=== PATIENT | female | born 1955 | race African-American/Black ===

== ENCOUNTER → 2021-10-28 11:06 | Outpatient (CLI) | payer OTHER, SELFPAY ==
--- NOTE | ~2021-10-28 | MM_ITS ---
EXAMINATION: MM screening meenakshi BI w geraldo HISTORY: Screening mammogram TECHNIQUE: Craniocaudal and mediolateral oblique 3-D tomosynthesis images were obtained and synthetic 2-D images were generated. CAD analysis was submitted and interpreted. COMPARISON: 06/04/2018, 07/17/2016 bilateral screening mammogram examinations BREAST PARENCHYMAL COMPOSITION: There are scattered areas of fibroglandular density. FINDINGS: There is no evidence of suspicious mass, calcification, or architectural distortion to sugg est malignancy in either breast. There has been no suspicious interval change. IMPRESSION: 1. No mammographic evidence of malignancy. 2. Recommend routine screening mammography in one year. BI-RADS Category 1: Negative Reviewed, dictated and finalized at location A.
== END ==
PROVIDERS: PCP Internal Medicine; Visit Provider Internal Medicine
DX: Z12.31 Encounter for screening mammogram for malignant neoplasm of breast (principal)
CPT/HCPCS: 77063; 77067

== ENCOUNTER 2023-06-05 17:44 | Emergency (ER) | payer OTHER, SELFPAY ==
[2023-06-05 18:07] VITALS: BP 193/81; PULSE 72; RESP 16; TEMP 36.4; O2SAT 99
--- NOTE | 2023-06-05 20:02 | ED.GENADULT ---
HPI - General Adult General Chief complaint: Extremity Injury, Lower Stated complaint: left ankle swelling and redness (H cellulitis) Time Seen by Provider: 06/05/23 19:58 Source: patient Mode of arrival: ambulatory Limitations: no limitations History of Present Illness HPI narrative: This is a 68-year-old female who presents to the ED with chief complaint of left ankle swelling and pain onset today. Reports that she works a job where she does a lot of walking and has recently started to feel some pains radiating from the anterior ankle up into the anterior alexander. Reports a little bit of swelling to the ankle. Denies any trauma or direct injury to the ankle. Denies any problems with weight-bearing. Denies erythema, recent travel, recent hospitalization for any blood clot history Related Data Allergies Allergy/AdvReac Type Severity Reaction Status Date / Time No Known Allergies Allergy Verified 06/05/23 18:09 Review of Systems Review of Systems: All systems as dictated in HPI Exam Narrative: GENERAL: Well-appearing, well-nourished, and in no acute distress. HEAD: Normocephalic, atraumatic. EYES: PERRLA and EOMI. ENT: Nares clear, no rhinorrhea or epistaxis. Mucous membranes moist. Oropharynx without tonsillar hypertrophy exudate or other lesions. NECK: Supple. No adenopathy or masses. CHEST: No respiratory distress. Clear to auscultation. No wheezes rales or rhonchi HEART: Regular rate and rhythm. No murmur heard. Normal peripheral pulses. ABDOMEN: Soft, nontender, nondistended, normal active bowel sounds. MSK: Normal range of motion. No edema. SKIN: Warm, dry, no rash. NEURO: Alert and oriented x3. No focal deficits. PSYCH: Normal mood and affect. Course Vital Signs Vital signs: Vital Signs Temperature 97.5 F L 06/05/23 18:07 Pulse Rate 72 06/05/23 18:07 Respiratory Rate 16 06/05/23 18:07 Blood Pressure 193/81 H 06/05/23 18:07 Pulse Oximetry 99 06/05/23 18:07 Temperature 97.5 F L 06/05/23 18:07 Pulse Rate 73 06/05/23 23:02 Respiratory Rate 17 06/05/23 23:02 Blood Pressure 173/80 H 06/05/23 23:02 Pulse Oximetry 100 06/05/23 23:02 Medical Decision Making MDM Narrative Medical decision making narrative: This is a 68-year-old female who presents to the ED with chief complaint of left ankle pain. Mild amount of swelling to the left ankle. No erythema or evidence of infection. Vitals are normal. No risk factors for blood clot. She is still requesting workup for blood clot but we do not have ultrasound at this time. D-dimer was ordered and is measured at 1.66. She is given prophylactic shot of Lovenox here. Ultrasound ordered for tomorrow. Discussed that the positive D-dimer does not mean she has a blood clot but she needs to have this ruled out. She is understanding and agreeable with plan for discharge and follow-up tomorrow for the imaging. She will follow-up with PCP on this. Discharged in stable condition. Vital Signs Vital Signs: Vital Signs Temperature 97.5 F L 06/05/23 18:07 Pulse Rate 72 06/05/23 18:07 Respiratory Rate 16 06/05/23 18:07 Blood Pressure 193/81 H 06/05/23 18:07 Pulse Oximetry 99 06/05/23 18:07 Temperature 97.5 F L 06/05/23 18:07 Pulse Rate 73 06/05/23 23:02 Respiratory Rate 17 06/05/23 23:02 Blood Pressure 173/80 H 06/05/23 23:02 Pulse Oximetry 100 06/05/23 23:02 Lab Data 06/05/23 21:12 06/05/23 21:12 Labs: Lab Results 06/05/23 06/05/23 Range/Units 21:12 22:02 WBC 6.4 (4.5-10.0) K/mm3 RBC 4.44 (4.2-5.4) M/mm3 Hgb 12.6 (12.0-15.0) g/dL Hct 39.0 (37.0-47.0) % MCV 87.8 (80-100) fl MCH 28.4 (26-34) pg MCHC 32.3 (32-36) g/dl RDW 13.2 (11.5-14.5) % Plt Count 190 (150-375) k/mm3 MPV 10.4 (7.4-10.4) fl Immature Gran % (Auto) 0.2 (0-0.5) % Neut % (Auto) 46.2 (45.5-73.1) % Lymph % (Auto) 43.4 (18.3-44.2)
[2023-06-05 21:20] LABS: Basophils Percent Auto 0.3 % (0.2-1.2); Eosinophils Absolute Auto 0.1 K/mm3 (0-0.3); Eosinophils Percent Auto 1.7 % (0-4.4); Hemoglobin 12.6 g/dL (12.0-15.0); Immature Granulocyte Absolute 0.01 K/mm3 (0.00-0.031); Immature Granulocyte Percent A 0.2 % (0-0.5); Lymphocytes Absolute Auto 2.79 K/mm3 (0.9-3.2); Lymphocytes Percent Auto 43.4 % (18.3-44.2); Mean Corpuscular HGB Conc 32.3 g/dl (32-36); Mean Corpuscular Hemoglobin 28.4 pg (26-34); Mean Corpuscular Volume 87.8 fl (80-100); Mean Platelet Volume 10.4 fl (7.4-10.4); Monocytes Absolute Auto 0.5 K/mm3 (0.1-0.6); Monocytes Percent Auto 8.2 % (2.6-8.5); Neutrophils Percent Auto 46.2 % (45.5-73.1); Platelet Count Result 190 k/mm3 (150-375); Red Blood Count 4.44 M/mm3 (4.2-5.4); Red Cell Distribution Width 13.2 % (11.5-14.5); White Blood Count 6.4 K/mm3 (4.5-10.0)
[2023-06-05 21:32] LABS: Alanine Aminotransferase 34 U/L (6-35); Albumin Level 4.4 g/dL (3.5-5.1); Alkaline Phosphatase 85 U/L (38-126); Anion Gap 7 mmol/L (8-16); Aspartate Amino Transferase 33 U/L (14-36); Bilirubin,Total 0.5 mg/dL (0.2-1.3); Blood Urea Nitrogen 16 mg/dL (7-17); Calcium 9.5 mg/dL (8.4-10.2); Carbon Dioxide 26 mmol/L (22-30); Chloride 106 mmol/L (98-107); Estimated Glomerular Filt Rate > 60; Glucose 86 mg/dL (65-110); Potassium 3.5 mmol/L (3.4-5.0); Sodium 139 mmol/L (137-145)
[2023-06-05 22:22] LABS: D Dimer 1.66 ug/mL (<0.48)
[2023-06-05] MEDS: ENOXAPARIN 100 MG/ML SYRINGE 90 MG SUB-Q (22:59)
[2023-06-05 23:02] VITALS: BP 173/80; PULSE 73; RESP 17; O2SAT 100
== END 2023-06-05 23:03 | disposition home or self-care (01) ==
PROVIDERS: Emergency Provider Physician Assistant; PCP Internal Medicine
DX: M25.472 Effusion, left ankle (principal)
CPT/HCPCS: 36415; 80053; 85025; 85380; 96372; 99283; J1650

== ENCOUNTER 2023-06-06 10:08 | Outpatient (CLI) | payer OTHER, SELFPAY ==
--- NOTE | ~2023-06-06 | US_ITS ---
EXAMINATION: US venous doppler [facility] DATE: 06/06/2023 10:54 INDICATION: Left lower limb swelling. TECHNIQUE: Grayscale ultrasound images without and with compression and Doppler ultrasound images of the left lower extremity veins were obtained. COMPARISON: None. FINDINGS: The visualized portions of left common femoral vein, profunda (deep) femoral vein, femoral vein, popl iteal vein, peroneal veins, posterior tibial veins, and greater saphenous vein outflow are patent. IMPRESSION: 1. No deep venous thrombosis. Reviewed, dictated and finalized at location A. [facility] [employer]
== END 2023-06-06 10:09 | disposition home or self-care (01) ==
PROVIDERS: PCP Internal Medicine; Visit Provider Physician Assistant
DX: M25.472 Effusion, left ankle (principal)
CPT/HCPCS: 93971